=== PATIENT | male | born 1955 | race Caucasian/White ===

== ENCOUNTER 2016-10-21 17:11 | Emergency (ER) | payer OTHER ==
[~2016-10-21] VITALS: Ht 165.1 cm; Wt 77.1 kg
[~2016-10-21 17:11] MED LIST: ASPI1TAB PO; ASPI81TA31 PO
--- NOTE | 2016-10-21 17:50 | NUR ---
pt had recent urinary tract surgery, has tsai catheter and leg bag, c/o pain, 7/10. No other complaints, no distress noted.
--- NOTE | 2016-10-21 18:21 | NUR ---
Redd crawford in [facility] - 10/21/16 at 1823 by LARA Gave pt d/c instructions in Samoan, verbalized understanding.
--- NOTE | 2016-10-21 18:23 | NUR ---
Gave pt d/c instructions, verbalized understanding, left w/o signing
== END 2016-10-21 18:28 | disposition home or self-care (01) ==
LOC: ER 17:12
DX: N36.8 Other specified disorders of urethra (principal); I10 Essential (primary) hypertension; E78.00 Pure hypercholesterolemia, unspecified; Z79.82 Long term (current) use of aspirin; Z98.890 Other specified postprocedural states
CPT/HCPCS: A4663

== ENCOUNTER 2020-05-28 12:19 | Emergency (ER) | payer MEDICAID, OTHER ==
[~2020-05-28] VITALS: Ht 167.6 cm; Wt 77.1 kg
[~2020-05-28 12:19] MED LIST changes: +ASPI-1165 PO; -ASPI1TAB PO
[2020-05-28] MEDS ORDERED: MAGNESIUM HYDROXIDE 30 ML LIQUID UDC PO ONE (13:15)
[2020-05-28] MEDS ORDERED: MAGNESIUM CITRATE 296 ML BOTTLE PO ONE (13:15)
[2020-05-28] MEDS ORDERED: MAGNESIUM HYDROXIDE 30 ML LIQUID UDC ONE (13:21)
[2020-05-28] MEDS ORDERED: MAGNESIUM CITRATE 296 ML BOTTLE ONE (13:22)
[2020-05-28] MEDS ORDERED: DICYCLOMINE HCL LIQ 10 MG/5 ML UDC ONE (13:26)
[2020-05-28] MEDS ORDERED: DICYCLOMINE HCL LIQ 10 MG/5 ML UDC PO ONE (13:30)
--- NOTE | 2020-05-28 13:50 | NUR ---
pt refuses tosha, requesting to talk to dr. fan. pt told Dr. Fan that he does not have urinary problem, only constipation.
[2020-05-28] MEDS ORDERED: LIDOCAINE 2% (UROJET) 10 ML JELLY MM ONE (13:52)
--- NOTE | 2020-05-28 14:18 | NUR ---
pt had bowel movement. pt states relief of pain, ready to be d/raad.Patient discharged to home in stable condition. Written and verbal after care instructions given. Patient verbalizes understanding of instructions. Stressed follow up or return to ER for worsening s/s.
== END 2020-05-28 14:20 | disposition home or self-care (01) ==
LOC: ER 12:19
DX: K59.00 Constipation, unspecified (principal); Z79.82 Long term (current) use of aspirin; I10 Essential (primary) hypertension; E78.00 Pure hypercholesterolemia, unspecified; Z85.49 Personal history of malignant neoplasm of other male genital organs
CPT/HCPCS: A4663